=== PATIENT | male | born 1955 | race Hispanic/Latino ===

== ENCOUNTER 2024-06-27 10:47 | Day surgery (SDC) | payer OTHER ==
[2024-06-27] VITALS (11 sets, daily range): BP systolic 121–160; BP diastolic 66–93; PULSE 69–79; RESP 14–18
[~2024-06-27] VITALS: Ht 177.8 cm; Wt 93.9 kg
[~2024-06-27 10:47] MED LIST: ATOR40TA69 PO; DOXA4TAB3 PO; FINA5TAB41 PO; FLUT1BLS15 IH; THEO400T3 PO
[2024-06-27] MEDS: 0.9%NACL 1000ML 1,000 ML IV ONE (11:46)
[2024-06-27] MEDS ORDERED: PROPOFOL 10 MG/ML 20ML VIAL IV ONE ×2 (12:25)
== END 2024-06-27 14:00 | disposition home or self-care (01) ==
LOC: DAH 10:47
PROVIDERS: ATTEND Internal Medicine Gastroenterology
DX: Z09 Encounter for follow-up examination after completed treatment for conditions other than malignant neoplasm (principal); D12.3 Benign neoplasm of transverse colon; K57.30 Diverticulosis of large intestine without perforation or abscess without bleeding; K64.1 Second degree hemorrhoids; D12.5 Benign neoplasm of sigmoid colon; E78.5 Hyperlipidemia, unspecified; J43.9 Emphysema, unspecified; K76.0 Fatty (change of) liver, not elsewhere classified; N20.0 Calculus of kidney; N28.1 Cyst of kidney, acquired; Z79.82 Long term (current) use of aspirin; Z79.899 Other long term (current) drug therapy
CPT/HCPCS: 45380; 88305; J7030; J2704 ×2; A4620; A4215 ×2; A4223; A4222; A4221; A4663; A4606; J3490